=== PATIENT | female | born 1975 | race Caucasian/White ===

== ENCOUNTER → 2021-10-28 16:06 | Outpatient (CLI) | payer OTHER, SELFPAY ==
--- NOTE | 2021-10-28 | DI.MRI.S_ITS ---
PROCEDURE: MR LUMBAR SPINE WO CON INDICATIONS: Radiculopathy, cervical and lumbar region TECHNIQUE: Noncontrast sagittal T1 spin echo and T2 fast echo, sagittal STIR, axial T1 and T2 fast spin echo through the lumbar spine. In cases with scoliosis, additional coronal T2 fast spin echo may be performed. COMPARISON: None. FINDINGS: Image quality: Excellent. Alignment and Curvature: There is normal bony alignment. Bone Marrow: Marrow is of normal overall signal. No acute vertebral body compression fractures. Spinal Cord: Conus medullaris terminates at the L1 level. Visualized cord demonstrates normal signal and size. Regional Soft Tissues: No paravertebral masses. T12-L1: No spinal canal or neural foraminal stenosis. L1-L2: No spinal canal or neural foraminal stenosis. L2-L3: No spinal canal or foraminal stenosis. L3-L4: No spinal canal or neural foraminal stenosis. L4-L5: Disc desiccation and disc height loss. Small annular fissure noted. Diffuse disc bulge flattens the ventral thecal sac. Disc material displaces the descending L5 nerve roots within both subarticular zones. No neural foraminal stenosis. There is mild-moderate right greater than left facet arthrosis. L5-S1: Disc desiccation and disc height loss with diffuse disc bulge mildly displacing the descending S1 nerve roots in both subarticular zones. Small annular fissure noted. No neural foraminal stenosis. Mild facet arthrosis. IMPRESSION: Mild lower lumbar spine degenerative changes. No evidence of focal nerve root impingement. Facet arthrosis and annular fissures at both L4-L5 and L5-S1, potential sources of nonradicular axial back pain. Dictated by: Christiano Lam M.D. on 10/31/2021 at 10:15 Approved by: Christiano Lam M.D. on 10/31/2021 at 10:21
--- NOTE | 2021-10-28 | DI.MRI.S_ITS ---
PROCEDURE: MR CERVICAL SPINE WO CON INDICATIONS: Radiculopathy, cervical and lumbar region TECHNIQUE: Noncontrast sagittal T1 spin echo and T2 fast spin echo, sagittal STIR, foraminal oblique sagittal T2 fast spin echo, and axial gradient echo or T2 fast spin echo through the cervical spine. COMPARISON: None. FINDINGS: Image quality: Excellent. Alignment and Curvature: There is normal bony alignment. Bone Marrow: Marrow demonstrates normal overall signal. Spinal Cord: Visualized spinal cord has normal size and signal. No cerebellar tonsillar herniation. Regional Soft Tissues: No paravertebral masses. Prevertebral soft tissues are normal in thickness. C2-C3: No spinal canal or neural foraminal stenosis. C3-C4: No spinal canal or neural foraminal stenosis. C4-C5: Posterior disc osteophyte complex flattens the ventral thecal sac and mildly flatten the left paracentral cord. No neural foraminal stenosis. C5-C6: Posterior disc-osteophyte complex flattens the ventral cord. Facet and uncovertebral hypertrophy combine to produce mild bilateral neural foraminal stenosis. C6-C7: No spinal canal or neural foraminal stenosis. C7-T1: No spinal canal or neural foraminal stenosis. IMPRESSION: Mild degenerative changes at C4-C5 and C5-C6. Dictated by: Christiano Lam M.D. on 10/31/2021 at 10:00 Approved by: Christiano Lam M.D. on 10/31/2021 at 10:14
== END ==
PROVIDERS: Referring Provider Family Medicine; Visit Provider Family Medicine
DX: M47.22 Other spondylosis with radiculopathy, cervical region (principal); M47.26 Other spondylosis with radiculopathy, lumbar region; M54.9 Dorsalgia, unspecified; M47.27 Other spondylosis with radiculopathy, lumbosacral region
CPT/HCPCS: 72141; 72148

== ENCOUNTER → 2022-03-09 07:38 | Outpatient (CLI) | payer OTHER, SELFPAY ==
--- NOTE | 2022-03-09 07:41 | DI.ECHO.S_ITS ---
[facility] +---------+ : : [address] : : : : [id number] : : : : Phone: [phone]+ Echocardiogram Report + + :Name: YOLIE YANG Study Date: 03/09/2022 Height: 67 in : :[facility] ReadingLocation: Weight: 183 lb : : Gender: Female BSA: 1.9 m2 : :: 1975 Age: 46 yrs BP: 158/102 mmHg: :Reason For Study: PALPITATIONS : :Ordering Physician: TAMI, : :DIMITRI Mercado Performed By: Anjali Chu : :Referring: DIMITRI GARRETT : + + Interpretation Summary The left ventricle is normal in size and wall thickness. The ejection fraction is estimated to be 55-60%. The right ventricle is grossly normal size. The right ventricular systolic function is normal. There is mild mitral regurgitation. The IVC is of normal diameter and collapses greater than 50% with a sniff. This suggests a low right atrial pressure of 3 mm Hg. BP: 158/102 mmHg Procedure: A two-dimensional transthoracic echocardiogram with color flow and Doppler was performed. The study quality was technically adequate. There is no prior echocardiogram noted for this patient. The patient was in sinus rhythm with heart rates between 62-68 bpm during the exam. Left Ventricle: The left ventricle is normal in size and wall thickness. There is no thrombus. The ejection fraction is estimated to be 55-60%. Left ventricular systolic function is normal. There are no focal wall motion abnormalities. MV E/A: 1.1 Med Peak E' Robbi: 7.4 cm/sec E/E' med: 12.5. Right Ventricle: The right ventricle is not well visualized. The right ventricle is grossly normal size. The right ventricular systolic function is normal. Atria: The left atrial size is normal. Right atrial size is normal. There is no Doppler evidence for an interatrial shunt. Mitral Valve: The mitral valve leaflets appear mildly thickened, but open well. The mitral valve leaflets are slightly calcified. There is mild mitral regurgitation. Aortic Valve: The aortic valve is grossly normal. There is no aortic valve stenosis. No aortic regurgitation is present. Tricuspid Valve: The tricuspid valve is not well visualized, but is grossly normal. No tricuspid regurgitation. Pulmonary artery pressures cannot be estimated because of the lack of a measurable TR jet velocity. Pulmonic Valve: The pulmonic valve is not well visualized. There is no pulmonic valvular regurgitation. Great Vessels: The aortic root is normal size. The dimensions of the ascending aorta are normal. The IVC is of normal diameter and collapses greater than 50% with a sniff. This suggests a low right atrial pressure of 3 mm Hg. Pericardium/ Pleura There is no pericardial effusion. There is no pleural effusion. MMode/2D Measurements & Calculations LVIDd: 4.8 cm LVOT diam: 2.0 cm LVIDs: 3.1 cm Ao root diam: 2.8 cm FS: 35.2 % asc Aorta Diam: 3.1 cm IVSd: 0.95 cm Ao Arch Diam (Prox Trans): 2.7 cm LVPWd: 0.96 cm LV de la torre. diameter/BSA (cm/m^2): 2.5 LV sys. diameter/BSA (cm/m^2): 1.6 LA A2 area: 17.9 cm2 RA long axis: 4.5 cm LA A4 area: 15.3 cm2 RA area: 13.5 cm2 LA length (vol): 4.7 cm RA vol: 34.5 ml LA vol: 49.5 ml RA : 17.7 ml/m2 LA vol index: 25.4 ml/m2 IVC diam: 1.4 cm TAPSE: 2.2 cm Doppler Measurements & Calculations Ao V2 max: 108.4 cm/sec LVOT Max Robbi: 71.2 cm/sec Ao V2 mean: 73.7 cm/sec LV V1 max P.0 mmHg Ao max P.7 mmHg LV V1 VTI: 16.8 cm Ao mean P.5 mmHg JODEE(I,D): 2.2 cm2 Ao V2 VTI: 24.4 cm JODEE(V,D): 2.0 cm2 sev ratio: 0.69 JODEE indexed to BSA (cm^2/m^2): 1.1 MV E max robbi: 92.6 cm/sec PA V2 max: 88.4 cm/sec MV A max robbi: 81.0 cm/sec PA V2 mean: 58.4 cm/sec MV E/A: 1.1 PA mean P.6 mmHg Med Peak E' Robbi: 7.4 cm/sec E/E' med: 12.5 Lat Peak E' Robbi: 10.0 cm/sec E/E' lat: 9.2 E/e' average: 10.9 MV dec time: 0.22 sec SVLVOT): 52.5 ml Reading Physician:12:03 PM
== END ==
PROVIDERS: Referring Provider Family Medicine; Visit Provider Family Medicine
DX: I34.0 Nonrheumatic mitral (valve) insufficiency (principal); R00.2 Palpitations; R60.9 Edema, unspecified; R20.2 Paresthesia of skin; R53.83 Other fatigue
CPT/HCPCS: 93306

== ENCOUNTER 2022-08-24 00:48 | Emergency (ER) | payer OTHER, SELFPAY ==
[2022-08-24 01:03] VITALS: BP 177/99; PULSE 90; RESP 20; TEMP 36.6; O2SAT 97; BMI 63.8
--- NOTE | 2022-08-24 01:11 | DI.RAD.S_ITS ---
PROCEDURE: XR CHEST 1V INDICATIONS: Shortness of breath TECHNIQUE: One view of the chest was acquired. COMPARISON: None. FINDINGS: Surgical changes and devices: None. Lungs and pleura: Lungs are clear. No pleural effusions or pneumothorax. Mediastinum: Mediastinal contours appear normal. Heart size is normal. Bones and chest wall: No suspicious bony lesions. Overlying soft tissues appear unremarkable. IMPRESSION: 1. No acute cardiopulmonary disease. Dictated by: Vaughn Maharaj M.D. on 08/24/2022 at 2:07 Approved by: Vaughn Maharaj M.D. on 08/24/2022 at 2:07
[2022-08-24 04:56] VITALS: BP 171/77; PULSE 88; RESP 20; TEMP 36.8
--- NOTE | 2022-08-24 05:04 | ED.GENADULT ---
HPI - General Adult General Chief complaint: Upper Respiratory Symptoms Stated complaint: HARD TIME CATCHING HER BREATH Time Seen by Provider: 08/24/22 05:04 Source: patient Mode of arrival: Ambulatory History of Present Illness HPI narrative: Otherwise healthy 46-year-old woman presents with worsening cough. She notes significant viral infection over the Thanksgiving week with fevers, body aches, chills, significant cough and mild nausea. She was clearly improving from this but over the last 2-3 days has had worsening cough that feels like there is mucus in her upper airways. She has been using an inhaler that she had been given after an episode of COVID almost a year ago and found that it was somewhat helpful. She is not complaining of fevers, myalgias or a general feeling of malaise, simply the cough. She is reporting no nausea, vomiting, diarrhea. No headaches. Related Data Previous Rx's Medication Instructions Recorded prednisone 20 mg tablet 20 mg PO DAILY #8 tabs 08/24/22 Review of Systems Review of Systems Narrative: Remainder of complete review of systems is otherwise unremarkable except for that included in the HPI. Patient History Substance Use Type: does not use Exam Initial Vital Signs Initial Vital Signs: Vital Signs Temperature 97.9 F 08/24/22 01:03 Pulse Rate 90 08/24/22 01:03 Respiratory Rate 20 08/24/22 01:03 Blood Pressure 177/99 H 08/24/22 01:03 Pulse Oximetry 97 08/24/22 01:03 Oxygen Delivery Method 08/24/22 01:03 General: Healthy appearing, in mild distress secondary to cough. Able to give a complete and coherent history. Well-nourished well-developed HEENT: Moist mucous membranes, normal sclera with reactive pupils, Neck: supple Respiratory: Lungs are clear to auscultation, no wheezing no rales no rhonchi. Full and symmetrical air movement Cardiac: Regular rate and rhythm no murmurs no bruits Abdomen: Soft, nontender, good bowel tones, no flank pain Skin: Warm and dry, no rashes Neurologic: Grossly neurologically intact with no obvious asymmetries or abnormalities Extremities: No trauma, well perfused Psych: Cooperative, appropriate insight and affect Course Orders Ordered: ED Orders 08/24/22 01:11 XR chest 1V Stat COVID19 -Nasal RAPID/Pre-Proc Stat Complete Blood Count AUTO DIFF Stat Comprehensive Metabolic Panel Stat Lactate (Lactic Acid) Stat NT-proBNP (BNP-Adult 18+) Stat Prothrombin Time INR Stat Troponin I Stat EKG-12 Lead Stat Measure peak expiratory flow ONCE RT Consult Eval and Treat NOW 08/24/22 04:48 Covid-19 + FLU A/B + RSV - PCR Stat Vital Signs Vital signs: Vital Signs - 8 hr 08/24/22 01:03 08/24/22 04:56 Temperature 97.9 F 98.2 F Pulse Rate 90 88 Respiratory Rate 20 20 Blood Pressure 177/99 H 171/77 H Pulse Oximetry 97 Oxygen Delivery Method Room Air Medical Decision Making Imaging Data Chest x-ray: Radiologist's Impression: FINDINGS:? ? Surgical changes and devices:? None.? ? Lungs and pleura:? Lungs are clear.? No pleural effusions or pneumothorax.? ? Mediastinum:? Mediastinal contours appear normal.? Heart size is normal.? ? Bones and chest wall:? No suspicious bony lesions.? Overlying soft tissues appear unremarkable.? ? IMPRESSION:? ? 1.? No acute cardiopulmonary disease. ? ? ? Dictated by: Vaughn Maharaj M.D. on 08/24/2022 at 2:07 ? ? MDM Narrative Medical decision making narrative: 46-year-old woman with what sounds like a post viral reactive airway persistent cough. She is not having any additional signs of a post viral pneumonia or infection at this time chest x-ray is unremarkable. She responded nicely to albuterol nebulizer. Will place her on a steroid taper brief and have her increase the use of her albuterol MDI with spacer from once or twice a day to 2 puffs every 4-6 hours until the coughing is improving. We will also ask her to follow-up with her primary care physician. At this point I see no evidence of acute coronary syndrome, bacterial or viral etiology, congestive heart failure or pulmonary embolism. Findings reviewed with patient and she is safe for discharge home Discharge Plan Departure Patient Disposition: Home Clinical Impression: Post-viral cough syndrome Instructions: DI for Cough -- Adult Activity Restrictions/Additional Instructions: Thank you for coming in today Your x-ray is reassuring. There is no evidence of bacterial pneumonia, congestive heart failure, enlarged heart or collapsed lung. Based on your history and the fact that you are not having myalgias or fevers I suspect that this persistent cough is mild reactive airway disease after your recent viral infection. I am going to suggest a brief course of steroids. You are given 60 mg in the emergency department, I have given you a prescription for 40 mg for 2 days, 20 mg for 2 days and then 10 mg for 4 days. I would encourage you to use the albuterol meter dose inhaler that you have at home along with your spacer with 2 puffs every 4-6 hours depending on severity of your cough. Please schedule follow-up appointment with your primary care doctor within a week If you find that you are getting worse or develop any new symptoms, please feel free to return to the emergency department for further evaluation. Prescriptions: New prednisone 20 mg tablet 20 mg PO DAILY Qty: 8 0RF Rx Instructions: 40 mg x 2 days, 20 mg x 2 days, 10 mg x 4 days Referrals: Miscellaneous,Doctor, [Primary Care Provider] -
[2022-08-24] MEDS: predniSONE 20 MG TABLET 60 MG PO (05:22)
[2022-08-24] MEDS: ALBUTEROL 2.5 MG/3 ML NEB (ADULT) INH (05:23)
--- NOTE | 2022-08-24 05:28 | PC.NURSE ---
RT at bedside administering albuterol nebulizer
[2022-08-24 06:03] VITALS: BP 145/80; PULSE 83; RESP 16; O2SAT 98
[2022-08-24 06:13] LABS: COVID-19 CEPHEID 4-PLEX PCR Negative (Negative); Influenza A - CEPHEID Flu A NEGATIVE (NEGATIVE); Influenza B - CEPHEID Flu B NEGATIVE (NEGATIVE); Respiratory Syncytial Virus Negative (Negative)
== END 2022-08-24 06:08 | disposition home or self-care (01) ==
PROVIDERS: Emergency Provider Emergency Medicine
DX: G93.31 Postviral fatigue syndrome (principal)
CPT/HCPCS: 0241U; 71045; 94640; 99283; J7613

== ENCOUNTER → 2022-12-26 15:26 | Outpatient (CLI) | payer OTHER, SELFPAY ==
--- NOTE | 2022-12-26 15:27 | DI.RAD.S_ITS ---
PROCEDURE: XR SHOULDER LT MIN 2V INDICATIONS: LEFT SHOULDER PAIN TECHNIQUE: 3 views of the shoulder were acquired. COMPARISON: [facility], CR, XR CHEST 1V, 08/24/2022, 1:28. FINDINGS: Bones: No fractures or dislocations. No suspicious bony lesions. Visualized ribs appear intact. Soft tissues: No suspicious soft tissue calcifications. IMPRESSION: No definite radiographic abnormality. If pain persists with conservative management, consider cross sectional imaging such as CT or MRI for further assessment. Dictated by: Baldo TOLBERT Interpreted: Hasmukh Garcia MD on 12/26/2022 at 15:53 Transcribed by: JEM on 12/26/2022 at 15:55 Approved by: Hasmukh Garcia M.D. on 12/26/2022 at 16:36
== END ==
PROVIDERS: PCP Registered Nurse Diabetes Educator; Referring Provider Registered Nurse Diabetes Educator; Visit Provider Registered Nurse Diabetes Educator
DX: M25.512 Pain in left shoulder (principal); M79.2 Neuralgia and neuritis, unspecified
CPT/HCPCS: 73030

== ENCOUNTER → 2023-01-19 08:44 | Outpatient (CLI) | payer OTHER, SELFPAY ==
--- NOTE | 2023-01-19 | DI.MRI.S_ITS ---
PROCEDURE: MR SHOULDER LT W CON INDICATIONS: left shoulder pain TECHNIQUE: After the administration of 12 mL of dilute intra-articular Gadolinium contrast, oblique coronal T1 and T2 spin echo with fat saturation, oblique sagittal T1 spin echo with and without fat saturation, oblique sagittal T2 fast spin echo with fat saturation, axial T1 spin echo with fat saturation through the shoulder. COMPARISON: [facility], CR, XR SHOULDER LT MIN 2V, 12/26/2022, 15:23. FINDINGS: Image quality: Excellent. Rotator cuff: There is mild supraspinatus and infraspinatus tendinosis. No discrete tendon tear. No rotator cuff muscle atrophy on sagittal images. Bones and bursae: No bone marrow contusions or fractures. No acromioclavicular joint degeneration. The acromion demonstrates conventional anatomy, without an os acromiale. Capsule and soft tissues: The labrum and glenohumeral ligaments appear intact. The long head of the biceps tendon demonstrates normal location and morphology. The rotator interval appears normal, without fibrosis. The coracohumeral ligament is of normal thickness. No intra-articular bodies. IMPRESSION: 1. Mild supraspinatus and infraspinatus tendinosis. Dictated by: Keegan Klein M.D. on 01/19/2023 at 16:37 Approved by: Keegan Klein M.D. on 01/19/2023 at 18:44
--- NOTE | 2023-01-19 | DI.RAD.S_ITS ---
PROCEDURE: FL SHOULDER INJECTION MR/CT LT INDICATIONS: left shoulder pain COMPARISON: [facility], CR, XR SHOULDER LT MIN 2V, 12/26/2022, 15:23. TECHNIQUE: The indications, alternatives, benefits, risks, and complications of the procedure were explained to the patient. Written informed consent was obtained and placed in the chart. The shoulder was examined fluoroscopically and a site for needle placement chosen for entry into the glenohumeral joint from an anterior approach. The skin was prepped and draped in a sterile fashion, and 1% lidocaine infiltrated from skin down to joint capsule. A spinal needle was inserted into the glenohumeral joint, and a small amount of iodinated contrast media injected to confirm intra-articular placement of the needle tip. This was followed by approximately 12 mL dilute solution of a gadolinium containing MR contrast agent. The needle was removed and a dressing was applied. The patient was given postprocedural instructions and sent to the MR suite for MR imaging. FINDINGS: A single fluoroscopic spot image demonstrates intra-articular location of injected iodinated contrast. IMPRESSION: Successful fluoroscopically guided administration of dilute Gadolinium solution into the shoulder joint for MR arthrogram. Dictated by: Keegan Klein M.D. on 01/19/2023 at 15:43 Approved by: Keegan Klein M.D. on 01/19/2023 at 15:44
== END ==
PROVIDERS: PCP Registered Nurse Diabetes Educator; Referring Provider Registered Nurse Diabetes Educator; Visit Provider Registered Nurse Diabetes Educator
DX: M25.512 Pain in left shoulder (principal)
CPT/HCPCS: 23350; 73222

== ENCOUNTER → 2023-03-30 09:56 | Outpatient (CLI) | payer OTHER, SELFPAY ==
--- NOTE | 2023-03-30 | DI.MG.S_ITS ---
BILATERAL DIGITAL SCREENING MAMMOGRAM 3D/2D WITH CAD: 03/30/2023 CLINICAL: Routine screening. Comparison is made to exams dated: 03/27/2016 mammogram and 04/25/2019 mammogram - outside facility. Both breasts are heterogeneously dense, which may obscure small masses (category c / 51-75% glandular tissue). Current study was also evaluated with a Computer Aided Detection (CAD) system. No significant masses, calcifications, or other findings are seen in either breast. There has been no significant interval change. IMPRESSION: NEGATIVE There is no mammographic evidence of malignancy. A 1 year screening mammogram is recommended. Based on the Tyrer Cuzick model (a risk assessment model) the patient's lifetime risk is 10.6% and her 10 year risk is 2.4%. According to the ACR, ACS, and NCCN guidelines, an annual breast MRI exam along with mammogram is recommended if the patient's lifetime risk is 20% or greater. This exam was interpreted at Station ID: [id number]. NOTE: For mammograms, a report in lay terms will be sent to the patient. Approximately 15% of breast malignancies will not be visualized mammographically. In the management of a palpable breast mass, a negative mammogram must not discourage biopsy of a clinically suspicious lesion. Electronically Signed By: Shaq rhodes/nayla:03/30/2023 11:02:03 letter sent: Normal Exam ACR BI-RADS Category 1: Negative 3341F
== END ==
PROVIDERS: PCP Registered Nurse Diabetes Educator; Referring Provider Registered Nurse Diabetes Educator; Visit Provider Registered Nurse Diabetes Educator
DX: Z12.31 Encounter for screening mammogram for malignant neoplasm of breast (principal)
CPT/HCPCS: 77063; 77067

== ENCOUNTER → 2023-04-16 07:51 | Outpatient (CLI) | payer OTHER, SELFPAY ==
[2023-04-16 08:22] LABS: Hematocrit 40.8 % (36-46); Hemoglobin 13.7 g/dL (12.0-16.0); Mean Corpuscular HGB Conc 33.5 % (30-36); Mean Corpuscular Hemoglobin 29.1 PG (26-34); Mean Corpuscular Volume 86.8 fL (80-100); Platelet Count 209 X10^3/uL (150-400); Red Cell Distribution Width 13.6 % (11.6-14.8); White Blood Cell Count 6.2 X10^3/uL (4.5-11.0)
[2023-04-16 08:37] LABS: Alanine Aminotransferase 19 IU/L (<35); Albumin 4.3 g/dL (3.5-5.0); Albumin Globulin Ratio 1.4 (1.0-2.8); Alkaline Phosphatase 88 U/L (38-126); Aspartate Aminotransferase 20 IU/L (14-36); BUN Creatinine Ratio 26.7 (6-22); Bilirubin Total 0.6 mg/dL (0.2-1.3); Blood Urea Nitrogen 16 mg/dL (7-17); Calcium 9.1 mg/dL (8.4-10.2); Carbon Dioxide 31 mmol/L (22-32); Chloride 103 mmol/L (98-107); Cholesterol 230 mg/dL (140-199); Estimated Glomerular Filt Rate > 60 mL/min (>60); Globulin 3.1 g/dL (1.7-4.1); Glucose 101 mg/dL (70-100); HDL Cholesterol 70 mg/dL (40-60); HEMOLYSIS < 15 (0-50); LDL Cholesterol Calculated 126 mg/dL (<100); Potassium 3.7 mmol/L (3.4-5.1); Sodium 140 mmol/L (137-145); Total Protein 7.4 g/dL (6.3-8.2); Triglycerides 171 mg/dL (35-150)
[2023-04-16 08:54] LABS: Vitamin D 25 Hydroxy (D3) 36.1 ng/mL (30.0-100.0)
[2023-04-16 09:07] LABS: TSH w/ Reflex to FT4 2.98 uIU/mL (0.47-4.68)
== END ==
PROVIDERS: PCP Registered Nurse Diabetes Educator; Referring Provider Registered Nurse Diabetes Educator; Visit Provider Registered Nurse Diabetes Educator
DX: E55.9 Vitamin D deficiency, unspecified (principal); Z00.00 Encounter for general adult medical examination without abnormal findings
CPT/HCPCS: 36415; 80053; 80061; 82306; 84443; 85027

== ENCOUNTER 2023-05-25 08:30 | Day surgery (SDC) | payer OTHER, SELFPAY ==
--- NOTE | 2023-05-25 | PATH_ITS ---
[facility] Accession Number: [id number] No. of containers..01 Tissue . 01 Material submitted: . colon - ASCENDING POLYP . 01 Diagnosis: Ascending Colon Polyp, Biopsy: Tubular adenoma. MRV 05/31/2023 1723 Local . 01 Electronically signed: . Luz Cristina MD, Pathologist NPI- [id number] . 01 Gross description: . ASCENDING POLYP: Received in formalin is 1 fragment(s) of stringer, soft tissue measuring 0.2 x 0.2 x 0.2 cm submitted entirely in 1 cassette(s) /KRISTOFER 05/28/2023 2316 Local . 01 Pathologist provided ICD-10: D12.2 . 01 CPT . 166564 Specimen Comment: A courtesy copy of this report has been sent to [facility] Pathology Performed at: 01 [facility] [address] [place] [address] [id number] MD Vaughn Brambila MD Phone: [phone]
[2023-05-25 08:50] VITALS: BMI 30.5
[2023-05-25 08:58] VITALS: BP 172/95; PULSE 85; RESP 16; TEMP 36.4; O2SAT 100
[2023-05-25] MEDS: LACTATED RINGERS 1,000 ML 42 ML IV (09:05)
--- NOTE | 2023-05-25 10:22 | P.HP_ITS ---
History of Present Illness History of Present Illness Date Patient Seen: 05/25/23 Time Patient Seen: 10:22 Chief complaint: Colonoscopy Narrative: 47-year-old female presents today for her 1st screening colonoscopy. She is no family history of colon cancer and no symptoms that she finds concerning no bleeding or changes in bowel habits. She asked a few questions about polyps pathology and follow-up questions or recommendations and I answered these questions she would like to proceed. [facility], [facility] Medical History (Updated 05/25/23 @ 10:23 by Gricelda Martinez MD) Allergies Anxiety Asthma Chronic back pain Chronic left shoulder pain Dyslipidemia Eczema Essential hypertension Impaired fasting blood sugar Shoulder pain Surgical History Anesthesia History of bronchoscopy Family History Mother Diabetes mellitus History of heart disease Hyperlipidemia Hypertension Mental health problem Stroke Gastrointestinal disease Grandfather Cancer Grandmother Cancer Social History household members: spouse Smoking Status: Never smoker alcohol intake: never Meds Home Medications and Allergies Home Medications Medication Instructions Recorded Confirmed Type hydrochlorothiazide 25 mg tablet 25 mg PO DAILY #30 tabs 04/23/23 05/25/23 Rx epinephrine 0.3 mg/0.3 mL 0.3 ml IM PRN Anaphylaxis 05/25/23 05/25/23 History injection, auto-injector Allergies Allergy/AdvReac Type Severity Reaction Status Date / Time NSAIDS (Non-Steroidal Allergy Severe Anaphylaxis Verified 05/25/23 08:43 Anti-Inflamma bee venom protein (honey bee) AdvReac Hives Verified 05/25/23 08:43 shellfish Allergy Anaphylaxis Uncoded 05/25/23 08:43 Exam Vital Signs (past 8 hours): - 05/25/23 08:58 Temperature 97.6 F Pulse Rate 85 Respiratory Rate 16 Blood Pressure 172/95 H Pulse Oximetry 100 Oxygen Delivery Method Room Air Oxygen Delivery Method Room Air Const General: cooperative, healthy appearing and comfortable Nutritional Appearance: other (BMI 30) HENNC Head: normal to inspection Eyes General: appearance normal, both eyes and all related structures Neck Neck: normal visual inspection Resp Effort & Inspection: normal respiratory effort and able to speak in complete sentences GI Palpation: soft and No tender Assessment & Plan Assessment and plan (1) Colon cancer screening: Status: Acute Assessment & Plan narrative: Presents today for screening colonoscopy I discussed the risks benefits and alternatives including but not limited to perforation of the colon and an incomplete exam she fully understands these risks and would like to proceed.
[2023-05-25 11:09] VITALS: BP 114/64; PULSE 68; RESP 12; TEMP 36.3; O2SAT 99
[2023-05-25 11:14] VITALS: BP 108/64; PULSE 68; RESP 12; O2SAT 99
[2023-05-25 11:19] VITALS: BP 119/68; PULSE 63; RESP 11; O2SAT 97
[2023-05-25 11:24] VITALS: BP 118/69; PULSE 66; RESP 12; O2SAT 98
--- NOTE | 2023-05-25 11:27 | PM.OP.COLON ---
Operative Date/Time/Diagnoses Date of procedure: 05/25/23 Time of procedure: 11:27 Pre-op diagnosis: Screening for colon cancer. no family history Post-op diagnosis: same Procedure & Clinicians Study performed: Colonoscopy biopsy Same procedure as scheduled: Yes Indications: Screening for colon cancer Surgeon: Gricelda Martinez Procedure Notes Procedure in detail: Patient was taken to the endoscopy suite and placed in a left lateral decubitus position. A time-out was performed. With the help of anesthesiologist conscious sedation was induced and monitored throughout the case. A digital rectal exam was performed and there were no masses or strictures. The colonoscope was introduced into the anal canal and advanced through to the cecum. A photograph of the appendiceal orifice was obtained. The bowel prep was good [place] bowel prep score of 2, though there were some areas in the right colon that were very sticky and required irrigation for a thorough exam. The scope was then withdrawn for a total of 12 minutes and 1 small polyp in the ascending colon was seen photographed and removed with a biopsy forceps. The scope was then retroflexed and a photograph of the internal hemorrhoidal piles was obtained. Findings: polyp(s) Specimen(s): other (Small ascending colon polyp) Post-procedure Plan for aftercare: No family history of colon cancer follow-up will be 7-10 years depending on the pathology of this small polyp. Anyone with polyps I do recommend fiber supplementation.
[2023-05-25 11:31] VITALS: BP 98/65; PULSE 64; RESP 14; O2SAT 100
== END 2023-05-25 11:46 | disposition home or self-care (01) ==
PROVIDERS: PCP Registered Nurse Diabetes Educator; Referring Provider Surgery; Visit Provider Surgery
PROC: 0DJD8ZZ Inspection of Lower Intestinal Tract, Via Natural or Artificial Opening Endoscopic (ICD-10-PCS; CPT 45378; principal; 2023-05-25 09:15)
DX: Z12.11 Encounter for screening for malignant neoplasm of colon (principal); D12.2 Benign neoplasm of ascending colon
CPT/HCPCS: 45380

== ENCOUNTER → 2023-07-30 15:54 | Outpatient (CLI) | payer OTHER, SELFPAY ==
[2023-07-30 17:58] LABS: BUN Creatinine Ratio 32.4 (6-22); Blood Urea Nitrogen 22 mg/dL (7-17); Calcium 9.8 mg/dL (8.4-10.2); Carbon Dioxide 28 mmol/L (22-32); Chloride 102 mmol/L (98-107); Estimated Glomerular Filt Rate > 60 mL/min (>60); Glucose 109 mg/dL (70-100); HEMOLYSIS < 15 (0-50); Potassium 3.6 mmol/L (3.4-5.1); Sodium 140 mmol/L (137-145)
== END ==
PROVIDERS: PCP Registered Nurse Diabetes Educator; Referring Provider Registered Nurse Diabetes Educator; Visit Provider Registered Nurse Diabetes Educator
DX: I10 Essential (primary) hypertension (principal)
CPT/HCPCS: 36415; 80048

== ENCOUNTER → 2024-04-21 17:19 | Outpatient (CLI) | payer OTHER, SELFPAY ==
--- NOTE | 2024-04-21 17:20 | DI.MG.S_ITS ---
BILATERAL DIGITAL SCREENING MAMMOGRAM 3D/2D WITH CAD: 04/21/2024 CLINICAL: Routine screening. Comparison is made to exams dated: 03/30/2023 mammogram - [facility], 04/25/2019 mammogram, and 03/27/2016 mammogram - outside facility. Both breasts are heterogeneously dense, which may obscure small masses (category c / 51-75% glandular tissue). Current study was also evaluated with a Computer Aided Detection (CAD) system. No significant masses, calcifications, or other findings are seen in either breast. There has been no significant interval change. IMPRESSION: NEGATIVE There is no mammographic evidence of malignancy. A 1 year screening mammogram is recommended. Based on the Tyrer Cuzick model (a risk assessment model) the patient's lifetime risk is 10.6% and her 10 year risk is 2.5%. According to the ACR, ACS, and NCCN guidelines, an annual breast MRI exam along with mammogram is recommended if the patient's lifetime risk is 20% or greater. This exam was interpreted at Station ID: [id number]. NOTE: For mammograms, a report in lay terms will be sent to the patient. Approximately 15% of breast malignancies will not be visualized mammographically. In the management of a palpable breast mass, a negative mammogram must not discourage biopsy of a clinically suspicious lesion. Electronically Signed By: Renetta Raya M.D., Ph.D. rae/nayla:04/22/2024 12:03:51 letter sent: Normal Exam ACR BI-RADS Category 1: Negative [id number]
== END ==
LOC: MAMMO 17:19
PROVIDERS: PCP Registered Nurse Diabetes Educator; Referring Provider Registered Nurse Diabetes Educator; Visit Provider Registered Nurse Diabetes Educator
DX: Z12.31 Encounter for screening mammogram for malignant neoplasm of breast (principal); R92.333 Mammographic heterogeneous density, bilateral breasts
CPT/HCPCS: 77063; 77067

== ENCOUNTER → 2024-11-04 07:52 | Outpatient (CLI) | payer OTHER, SELFPAY ==
[2024-11-04 08:20] LABS: Hematocrit 41.5 % (36-46); Hemoglobin 13.9 g/dL (12.0-16.0); Mean Corpuscular HGB Conc 33.5 % (30-36); Mean Corpuscular Hemoglobin 28.8 PG (26-34); Platelet Count 219 X10^3/uL (150-400); Red Blood Cell Count 4.83 X10^6/uL (4.0-5.2); Red Cell Distribution Width 14.1 % (11.6-14.8); White Blood Cell Count 6.9 X10^3/uL (4.5-11.0)
[2024-11-04 08:34] LABS: Hemoglobin A1C% w Est Avg Glu 5.4 % (4.0-6.0)
[2024-11-04 08:45] LABS: Alanine Aminotransferase 30 IU/L (<35); Albumin 4.3 g/dL (3.5-5.0); Albumin Globulin Ratio 1.4 (1.0-2.8); Alkaline Phosphatase 95 U/L (38-126); Aspartate Aminotransferase 29 IU/L (14-36); BUN Creatinine Ratio 22.7 (6-22); Bilirubin Total 0.5 mg/dL (0.2-1.3); Blood Urea Nitrogen 15 mg/dL (7-17); Calcium 8.9 mg/dL (8.4-10.2); Carbon Dioxide 27 mmol/L (22-32); Chloride 104 mmol/L (98-107); Cholesterol 243 mg/dL (140-199); Estimated Glomerular Filt Rate > 60 mL/min (>60); Glucose 99 mg/dL (70-100); HDL Cholesterol 63 mg/dL (40-60); HEMOLYSIS < 15 (0-50); LDL Cholesterol Calculated 146 mg/dL (<100); Potassium 3.6 mmol/L (3.4-5.1); Sodium 139 mmol/L (137-145); Total Protein 7.3 g/dL (6.3-8.2); Triglycerides 171 mg/dL (35-150)
[2024-11-04 09:00] LABS: Vitamin D 25 Hydroxy (D3) 19.6 ng/mL (30.0-100.0)
[2024-11-04 09:51] LABS: TSH w/ Reflex to FT4 3.55 uIU/mL (0.47-4.68)
== END ==
PROVIDERS: PCP Registered Nurse Diabetes Educator; Referring Provider Registered Nurse Diabetes Educator; Visit Provider Registered Nurse Diabetes Educator
DX: I10 Essential (primary) hypertension (principal); R73.01 Impaired fasting glucose; E78.5 Hyperlipidemia, unspecified; R79.89 Other specified abnormal findings of blood chemistry
CPT/HCPCS: 36415; 80053; 80061; 82306; 83036; 84443; 85027

== ENCOUNTER → 2024-11-10 12:01 | Outpatient (CLI) | payer OTHER, SELFPAY ==
--- NOTE | 2024-11-10 12:01 | DI.US.S_ITS ---
PROCEDURE: US ART THORACIC OUT SYNDROME INDICATIONS: eval R arm pain/paresthesias, R/O arterial and venous TOS TECHNIQUE: Color and pulse Doppler interrogation was performed of left and right upper extremity arterial systems, with image documentation. COMPARISON: None. FINDINGS: Right upper extremity: Subclavian artery (proximal): 135.7 cm/sec, with patent flow. Subclavian artery (mid): 108.3 cm/sec, with patent flow. Subclavian artery (distal): 128.3 cm/sec, with patent flow. Brachial artery: 111.8 cm/sec, with patent flow. The right subclavian vein and axillary vein appear patent without evidence of DVT. Left upper extremity: Subclavian artery (proximal): 167.1 cm/sec, with patent flow. However, the velocity decreases to 90.4 centimeters/second during postop activity, indicative of arterial compression.. Subclavian artery (mid): 113.2 cm/sec, with patent flow. Subclavian artery (distal): 146.5 cm/sec, with patent flow. Axillary artery: 111.1 cm/sec, with patent flow. Brachial artery (proximal): 133.3 cm/sec, with patent flow. This is diminished 284.8 centimeters/second with pushed down. The left axillary vein and subclavian vein are patent without DVT. However, there is loss of cardiac and respiratory variation of the left axillary and left subclavian vein indicative of compression without obstruction. IMPRESSION: * Findings indicative of left axillary vein and subclavian vein compression without obstruction. * Additional findings suggesting left subclavian artery compression. * Recommend dedicated left axillary and subclavian CT angiogram and venogram for better characterization. Dictated by: Vaughn Patel M.D. on 11/11/2024 at 21:30 Approved by: Vaughn Patel M.D. on 11/11/2024 at 22:02
== END ==
LOC: US 12:01
PROVIDERS: PCP Registered Nurse Diabetes Educator; Referring Provider Registered Nurse Diabetes Educator; Visit Provider Registered Nurse Diabetes Educator
DX: G54.0 Brachial plexus disorders (principal); M79.602 Pain in left arm; R20.2 Paresthesia of skin
CPT/HCPCS: 93930

== ENCOUNTER → 2024-11-26 11:20 | Outpatient (CLI) | payer OTHER, SELFPAY ==
--- NOTE | 2024-11-26 11:22 | DI.CT.S_ITS ---
PROCEDURE: CT ANGIO UE LT INDICATIONS: L axillary,subclavian vein + subclavian artery TECHNIQUE: After the administration of intravenous contrast, 2.5 mm sections acquired from the aortic arch through the symptomatic arm, with optional delayed image acquisition from the elbows to the fingers. 3-dimensional maximum intensity projection (MIP) coronal and sagital reformats, and/or 3-dimensional volume rendering reformatting was then performed. For radiation dose reduction, the following was used: automated exposure control. COMPARISON: None. FINDINGS: Image quality: Excellent. Thoracic aorta: Patent without stenosis. Great vessels: There is narrowing of the left subclavian artery with the arm in the upright position, approximately 50% narrowing (series 9, image 199). The subclavian artery is widely patent with the arm in the upright position. Upper extremity: Unremarkable. Extravascular tissues: Patulous esophagus, which may indicate reflux. Small hiatal hernia. Marked coronary artery calcifications for age, within the LAD. Hepatic steatosis. IMPRESSION: Venous compression of the subclavian vein with the arm in the upright position. Findings may indicate mild thoracic outlet syndrome. No compression of the subclavian artery with the arm in the upright position. Marked coronary artery calcifications for age. Correlate with risk factors and advise counseling. Dictated by: Hasmukh Garcia M.D. on 11/26/2024 at 14:17 Approved by: Hasmukh Garcia M.D. on 11/26/2024 at 14:21
== END ==
LOC: CT 11:21
PROVIDERS: PCP Registered Nurse Diabetes Educator; Referring Provider Registered Nurse Diabetes Educator; Visit Provider Registered Nurse Diabetes Educator
DX: G54.0 Brachial plexus disorders (principal); I87.1 Compression of vein; I25.10 Atherosclerotic heart disease of native coronary artery without angina pectoris
CPT/HCPCS: 73206; Q9967

== ENCOUNTER → 2025-01-12 09:53 | Outpatient (CLI) | payer OTHER, SELFPAY ==
--- NOTE | 2025-01-12 09:55 | DI.RAD.S_ITS ---
PROCEDURE: XR CERVICAL SPINE 5V INDICATIONS: NECK PAIN TECHNIQUE: 5 views of the cervical spine acquired. COMPARISON: None. FINDINGS: [id number] degenerative changes with disc space narrowing, osteophytes, uncovertebral and facet hypertrophic changes most notably at C4-5, C5-6, C6-7 with mild bilateral neural foraminal narrowing at these levels. No radiographic evidence of fracture, subluxation or abnormal prevertebral soft tissue edema. IMPRESSION: Degenerative changes C4-5, C5-6 and C6-7. If symptoms persist or worsen, or there is high clinical suspicion of cervical abnormality, MRI could be performed. Dictated by: Aris Figueredo M.D. on 01/12/2025 at 10:51 Approved by: Aris Figueredo M.D. on 01/12/2025 at 10:54
== END ==
PROVIDERS: PCP Registered Nurse Diabetes Educator; Referring Provider Physical Medicine & Rehabilitation; Visit Provider Physical Medicine & Rehabilitation
DX: M47.812 Spondylosis without myelopathy or radiculopathy, cervical region (principal); M54.2 Cervicalgia
CPT/HCPCS: 72050

== ENCOUNTER → 2025-03-18 15:40 | Outpatient (CLI) | payer OTHER, SELFPAY ==
--- NOTE | 2025-03-18 15:42 | DI.RAD.S_ITS ---
PROCEDURE: XR CHEST 2V INDICATIONS: Cough TECHNIQUE: 2 views of the chest were acquired. COMPARISON: [facility], CR, XR CHEST 1V, 08/24/2022, 1:28. FINDINGS: Surgical changes and devices: None. Lungs and pleura: Hazy opacity at the left costophrenic angle. No pleural effusions or pneumothorax. Mediastinum: Mediastinal contours are normal. Heart size is normal. Bones and chest wall: No suspicious bony abnormalities. Soft tissues appear unremarkable. IMPRESSION: Hazy opacity at the left costophrenic angle. Appears more prominent compared to the prior exam. This could represent atelectasis. Pneumonia, pleural fluid, or prominent pericardial fat pad could have a similar appearance. Dictated by: Tarun Garcia M.D. on 03/19/2025 at 9:12 Approved by: Tarun Garcia M.D. on 03/19/2025 at 9:22
== END ==
PROVIDERS: PCP Registered Nurse Diabetes Educator; Referring Provider Nurse Practitioner Family; Visit Provider Nurse Practitioner Family
DX: R05.9 Cough, unspecified (principal)
CPT/HCPCS: 71046

== ENCOUNTER → 2025-03-18 15:54 | Outpatient (CLI) | payer OTHER, SELFPAY ==
[2025-03-18 17:03] LABS: COVID-19 CEPHEID 4-PLEX PCR Negative (Negative); Influenza A - CEPHEID Flu A NEGATIVE (NEGATIVE); Influenza B - CEPHEID Flu B NEGATIVE (NEGATIVE)
== END ==
PROVIDERS: PCP Registered Nurse Diabetes Educator; Visit Provider Nurse Practitioner Family
DX: R05.1 Acute cough (principal)
CPT/HCPCS: 71046; 87637

== ENCOUNTER 2025-03-23 04:58 | Emergency (ER) | payer OTHER, SELFPAY ==
[2025-03-23] VITALS (7 sets, daily range): BP systolic 153–190; BP diastolic 68–98; PULSE 64–75; RESP 11–26; TEMP 36.7; O2SAT 94–98; BMI 33.6
--- NOTE | 2025-03-23 05:06 | ED_ITS ---
HPI - General Adult General Chief complaint: Shortness of Breath/Dyspnea Stated complaint: pneumonia, can't catch her breath Time Seen by Provider: 03/23/25 05:02 History of Present Illness HPI narrative: 49-year-old female with ongoing cough now for 2 weeks, treated with initial course of oral azithromycin, not improved, had chest x-ray on 03/18/2025, felt to be possible left lower lobe pneumonia, now day 3-4 oral Augmentin with doxycycline antibiotic round, continues to have frequent coughing. Right anterior chest pain worse with coughing. Related Data Home Medications ?Medication ?Instructions ?Recorded ?Confirmed acetaminophen 500 mg tablet 500 mg PO Q6H PRN 01/12/25 03/18/25 (Tylenol Extra Strength) Previous Rx's ?Medication ?Instructions ?Recorded epinephrine 0.3 mg/0.3 mL 0.3 ml IM Q5-10M PRN Anaphyl axis 09/12/24 injection, auto-injector #2 ea progesterone micronized 100 mg 100 mg PO QAM #90 caps 11/18/24 capsule gabapentin 300 mg capsule 300 mg PO .COMPLEX #90 caps 01/12/25 estradiol 0.05 mg/24 hr semiweekly 1 patch transdermal 2XW #24 ea 03/10/25 transdermal patch azithromycin 250 mg tablet See Rx Instructions PO .COM PLEX #6 03/12/25 tabs benzonatate 200 mg capsule 200 mg PO BID-TID PRN cough #30 03/12/25 caps prednisone 20 mg tablet 40 mg (2 x 20 mg) PO DAILY # 6 tabs 03/18/25 amoxicillin 875 mg-potassium 1 tab PO Q12H PNA 7 days #14 tabs 03/19/25 clavulanate 125 mg tablet doxycycline hyclate 100 mg capsule 100 mg PO BID CAP 1 0 days #20 caps 03/19/25 prednisone 20 mg tablet 40 mg (2 x 20 mg) PO DAILY 5 days 03/23/25 #10 tabs Allergies Allergy/AdvReac Type Severity Reaction Status Date / Time NSAIDS (Non-Steroidal Allergy Severe Anaphylaxis Verified 03/23/25 05:04 Anti-Inflamma shellfish derived Allergy Severe Anaphylaxis Verified 03/23/25 05:04 bee venom protein (honey bee) AdvReac Hives Verified 03/23/25 05:04 Patient History Medical History Allergies Anxiety Asthma Cervical radicular pain Chronic back pain Chronic left shoulder pain Dyslipidemia Eczema Essential hypertension Herniated nucleus pulposus, L4-5 HNP (herniated nucleus pulposus), cervical Impaired fasting blood sugar Shoulder pain Surgical History Anesthesia History of bronchoscopy Family History Mother Diabetes mellitus History of heart disease Hyperlipidemia Hypertension Mental health problem Stroke Gastrointestinal disease Grandfather Cancer Grandmother Cancer Social History household members: spouse alcohol intake: never substance use type: does not use Exam Narrative Exam Narrative: GENERAL: Well-developed patient, in mild distress. HEAD: Atraumatic. Normocephalic. EYES: Pupils equal round and reactive. Extraocular motions intact. No scleral icterus. No injection or drainage. ENT: Nose without bleeding, purulent drainage. Throat without erythema, tonsillar hypertrophy or exudate. Airway patent. NECK: Trachea midline. Non tender CARDIOVASCULAR: Regular rate and rhythm without murmurs, gallops, or rubs. RESPIRATORY: Clear to auscultation. Breath sounds equal bilaterally. No wheezes, rales, or rhonchi. GASTROINTESTINAL: Abdomen soft, non-tender, nondistended. EXTREMITIES: No edema or joint tenderness. BACK: Nontender without deformity or crepitance. No flank tenderness. NEURO: AOx3. Motor functions grossly nonfocal. SKIN: No rash or erythema of visible areas Initial Vital Signs Initial Vital Signs: Vital Signs Temperature 98.1 F 03/23/25 05:04 Pulse Rate 74 03/23/25 05:04 Respiratory Rate 26 H 03/23/25 05:04 Blood Pressure 190/98 H 03/23/25 05:04 Pulse Oximetry 97 03/23/25 05:04 Oxygen Delivery Method Room Air 03/23/25 05:04 Course Orders Ordered: ED Orders 03/23/25 05:05 Complete Blood Count AUTO DIFF Stat Comprehensive Metabolic Panel Stat Lipase Stat Troponin & CK Cardiac Panel Stat 03/23/25 05:15 XR chest 1V Stat EKG-12 Lead Stat 03/23/25 05:28 Covid-19 + FLU A/B + RSV - PCR Stat Discontinued Medications Albuterol (Albuterol 2.5 Mg/3 Ml Neb (Adult)) 2.5 mg INH NOW ONE Stop: 03/23/25 05:06 Last Admin: 03/23/25 05:19 Dose: 2.5 mg Albuterol (Albuterol Hfa Prepack) 1 box MISC DIRECTED ONE Stop: 03/23/25 06:21 Last Admin: 03/23/25 06:25 Dose: 1 box Benzonatate (Benzonatate 100 Mg Capsule) 100 mg PO NOW ONE Stop: 03/23/25 05:27 Last Admin: 03/23/25 05:42 Dose: 100 mg Methylprednisolone (Methylprednisolone 125 Mg/2 Ml Vial) 125 mg IV NOW ONE Stop: 03/23/25 06:21 Last Admin: 03/23/25 06:25 Dose: 125 mg Vital Signs Vital signs: Vital Signs - 8 hr 03/23/25 05:04 03/23/25 05:15 03/23/25 05:20 Temperature 98.1 F Pulse Rate 74 66 75 Respiratory Rate 26 H 15 18 Blood Pressure 190/98 H Pulse Oximetry 97 97 98 Oxygen Delivery Method Room Air Room Air 03/23/25 05:30 03/23/25 05:31 03/23/25 05:31 Temperature Pulse Rate 66 69 Respiratory Rate 14 17 Blood Pressure 153/68 H Pulse Oximetry 97 96 Oxygen Delivery Method Room Air Medical Decision Making Lab Data Lab results reviewed: Yes I reviewed the patient's lab results. Lab results narrative: White blood cell count 9700, hemoglobin 14, platelets adequate. BMP unremarkable. Liver functions normal. Lipase normal. Troponin negative/unmeasurable. COVID flu RSV negative. 03/23/25 05:05 03/23/25 05:05 Labs: Lab Results 03/23/25 03/23/25 Range/Units 05:05 05:28 WBC 9.7 (4.5-11.0) X10^3/uL RBC 4.95 (4.0-5.2) X10^6/uL Hgb 14.4 (12.0-16.0) g/dL Hct 43.1 (36-46) % MCV 87.2 (80-100) fL MCH 29.2 (26-34) PG MCHC 33.5 (30-36) % RDW 13.9 (11.6-14.8) % Plt Count 241 (150-400) X10^3/uL Neut % (Auto) 61.1 (50-75) % Lymph % (Auto) 29.3 (25-40) % [place] % (Auto) 7.2 (3-14) % Eos % (Auto) 1.6 L (2-4) % Baso % (Auto) 0.8 (0-2) % Neut # (Auto) 5900 (9028-1446) /uL Lymph # (Auto) 2800 (6861-3348) /uL [place] # (Auto) 700 (0-900) /uL Eos # (Auto) 200 (0-450) /uL Baso # (Auto) 100 (0-100) /uL Sodium 138 (137-145) mmol/L Potassium 4.0 (3.4-5.1) mmol/L Chloride 106 (98-107) mmol/L Carbon Dioxide 26 (22-32) mmol/L BUN 17 (7-17) mg/dL Creatinine 0.68 (0.52-1.04) mg/dL Estimated GFR > 60 (>60) mL/min BUN/Creatinine Ratio 25.0 H (6-22) Glucose 103 H (70-99) mg/dL Calcium 9.2 (8.4-10.2) mg/dL Total Bilirubin 0.4 (0.2-1.3) mg/dL AST 32 (14-36) IU/L ALT 43 H (<35) IU/L Alkaline Phosphatase 108 (38-126) U/L Total Creatine Kinase 26 L (30-135) U/L Troponin I < 0.012 (0.01-0.034) ng/mL Total Protein 7.7 (6.3-8.2) g/dL Albumin 4.3 (3.5-5.0) g/dL Globulin 3.4 (1.7-4.1) g/dL Albumin/Globulin Ratio 1.3 (1.0-2.8) Lipase 73 (23-300) U/L SARS-CoV-2 (PCR) Negative (Negative) Influenza A (RT-PCR) Flu a negative (NEGATIVE) Influenza B (RT-PCR) Flu b negative (NEGATIVE) RSV (PCR) Negative (Negative) ECG Data Attestation: I personally reviewed and interpreted this ECG as follows: Interpretation: 0509, normal sinus rhythm with rate 63, no obvious ST segment elevation or depression changes. SC 150, QRS 82, QTC 425. MDM Narrative Medical decision making narrative: 49-year-old female currently on Augmentin and Doxycycline day 4 after recent azithromycin course of antibiotics for possible pneumonia on chest x-ray 03/18/2025. Still coughing despite Tessalon Perles. With some right-sided chest discomfort worse with coughing. No oxygen requirement. No wheeze or crackles on exam. No respiratory distress. Speaks in full sentences. Prior chest x-ray from 03/18/2025 reads possible infiltrate left base versus atelectasis, see radiology report. Chest x-ray today. Impression: ?No acute cardiopulmonary abnormality is identified.? See teleradiology report. Lab data: White blood cell count 9700, hemoglobin 14, platelets adequate. BMP unremarkable. Liver functions normal. Lipase normal. Troponin negative/unmeasurable. COVID flu RSV negative. Albuterol nebulized given, less coughing, patient feels little bit better. Add IV Solu-Medrol. Consider bronchospasm control measures for control of cough. Prednisone pulse to be sent to her pharmacy. Can continue antibiotic regimen. Follow up with PCP advised later this week. Return precautions discussed. Discharge Plan Departure Patient Disposition: Home Clinical Impression: Cough Instructions: DI for Cough -- Adult Activity Restrictions/Additional Instructions: Ongoing cough for the last couple of weeks, persisting on current day for antibiotic combination Augmentin and doxycycline, after oral course of azithromycin antibiotic, for possible pneumonia on chest x-ray read 03/18/2025. The reading describes possible pneumonia but also atelectasis localized collapse. COVID influenza RSV swab today negative. Breathing treatment albuterol given. Continue taking your benzonatate anti cough medicine, dose given here in the emergency department as well. You may have post viral cough, which can be fairly tenacious. Perhaps there is a component of bronchospasm that is making you cough. Steroids and bronchodilator inhalers can help with this type of cough. Albuterol inhaler with spacer dispensed, 2 puffs 4 times daily for this next week and then as needed. IV Solu-Medrol steroid given, with prescription to continue prednisone oral steroid for 5 day pulse. Recheck symptoms with your regular doctor later this week. Return to this/nearest emergency department for any change worsening symptoms or any concerns prior. Prescriptions: New prednisone 20 mg tablet 40 mg PO DAILY 5 Days Qty: 10 0RF No Action azithromycin 250 mg tablet See Rx Instructions PO .COMPLEX Qty: 6 0RF Rx Instructions: For 250 mg dose pack: take 500 mg today (day 1), then 250 mg for 4 days (days 2-5) PO benzonatate 200 mg capsule 200 mg PO BID-TID PRN (Reason: cough) Qty: 30 0RF prednisone 20 mg tablet 40 mg PO DAILY Qty: 6 0RF epinephrine 0.3 mg/0.3 mL auto-injector 0.3 ml IM Q5-10M PRN (Reason: Anaphylaxis) Qty: 2 0RF estradiol 0.05 mg/24 hr patch semiweekly 1 patch transdermal 2XW Qty: 24 3RF doxycycline hyclate 100 mg capsule 100 mg PO BID 10 Days Qty: 20 0RF amoxicillin-pot clavulanate 875-125 mg tablet 1 tab PO Q12H 7 Days Qty: 14 0RF progesterone micronized 100 mg capsule 100 mg PO QAM Qty: 90 3RF acetaminophen [Tylenol Extra Strength] 500 mg tablet 500 mg PO Q6H PRN gabapentin 300 mg capsule 300 mg PO .COMPLEX Qty: 90 2RF Rx Instructions: 1-2 PO Tid to begin at HS and titrate to pain relief Referrals: Henry Fish ARNP [Primary Care Provider, Medical] Stand Alone Forms: Patient Portal/API
--- NOTE | 2025-03-23 05:09 | EKG_ITS ---
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
--- NOTE | 2025-03-23 05:15 | DI.RAD.S_ITS ---
PROCEDURE: XR CHEST 1V INDICATIONS: chest pain TECHNIQUE: One view of the chest was acquired. COMPARISON: [facility], CR, XR CHEST 2V, 03/18/2025, 15:42. FINDINGS: Surgical changes and devices: None. Lungs and pleura: Lungs are clear. No pleural effusions or pneumothorax. Mediastinum: Mediastinal contours appear normal. Heart size is normal. Bones and chest wall: No suspicious bony lesions. Overlying soft tissues appear unremarkable. IMPRESSION: No acute cardiopulmonary pathology. No discrepancies. Dictated by: Ino Moran M.D. on 03/23/2025 at 8:11 Approved by: Ino Moran M.D. on 03/23/2025 at 8:11
[2025-03-23] MEDS: ALBUTEROL 2.5 MG/3 ML NEB (ADULT) INH (05:19)
[2025-03-23 05:20] LABS: Add Manual Diff / Slide Review NO; Hematocrit 43.1 % (36-46); Hemoglobin 14.4 g/dL (12.0-16.0); Lymphocytes Absolute Auto 2800 /uL (1100-4500); Mean Corpuscular HGB Conc 33.5 % (30-36); Mean Corpuscular Hemoglobin 29.2 PG (26-34); Mean Corpuscular Volume 87.2 fL (80-100); Platelet Count 241 X10^3/uL (150-400)
[2025-03-23 05:25] LABS: Alanine Aminotransferase 43 IU/L (<35); Albumin 4.3 g/dL (3.5-5.0); Albumin Globulin Ratio 1.3 (1.0-2.8); Alkaline Phosphatase 108 U/L (38-126); Blood Urea Nitrogen 17 mg/dL (7-17); Calcium 9.2 mg/dL (8.4-10.2); Carbon Dioxide 26 mmol/L (22-32); Chloride 106 mmol/L (98-107); Creatine Kinase 26 U/L (30-135); Estimated Glomerular Filt Rate > 60 mL/min (>60); Globulin 3.4 g/dL (1.7-4.1); Glucose 103 mg/dL (70-99); HEMOLYSIS < 15 (0-50); Lipase 73 U/L (23-300); Potassium 4.0 mmol/L (3.4-5.1); Sodium 138 mmol/L (137-145); Total Protein 7.7 g/dL (6.3-8.2)
[2025-03-23 05:37] LABS: Troponin I < 0.012 ng/mL (0.01-0.034)
[2025-03-23] MEDS: BENZONATATE 100 MG CAPSULE PO (05:42)
[2025-03-23 06:10] LABS: Influenza A - CEPHEID Flu A NEGATIVE (NEGATIVE); Influenza B - CEPHEID Flu B NEGATIVE (NEGATIVE)
[2025-03-23 06:19] LABS: COVID-19 CEPHEID 4-PLEX PCR Negative (Negative)
[2025-03-23] MEDS: ALBUTEROL HFA PREPACK 1 BOX MISC (06:25)
== END 2025-03-23 06:52 | disposition home or self-care (01) ==
PROVIDERS: Emergency Provider Emergency Medicine; PCP Registered Nurse Diabetes Educator
DX: R05.9 Cough, unspecified (principal); R07.9 Chest pain, unspecified
CPT/HCPCS: 36415; 71045; 80053; 82550; 83690; 84484; 85025; 87637; 93005; 93010; 94640; 96374; 99284; J2919; J7613

== ENCOUNTER → 2025-04-01 10:54 | Outpatient (CLI) | payer OTHER, SELFPAY | PROVIDERS: PCP Registered Nurse Diabetes Educator; Visit Provider Physician Assistant | DX: R35.0 Frequency of micturition (principal); R39.15 Urgency of urination | CPT/HCPCS: 87086 ==

== ENCOUNTER → 2025-08-11 15:33 | Outpatient (CLI) | payer OTHER, SELFPAY ==
--- NOTE | 2025-08-11 15:34 | DI.MG.S_ITS ---
MM screening mammo BI: 08/11/2025. BI-RADS: 1 CLINICAL: 49-year old female for bilateral screening mammogram. Tyrer-Cuzick lifetime risk of 12.1%. No personal or first-degree family history of breast cancer. PRIOR EXAMS 04/21/2024, 03/30/2023. MAMMOGRAPHY TECHNIQUE: 2D and 3D (tomosynthesis) digital mammographic views obtained, with additional images as needed for full coverage. Current study was also evaluated with a Computer Aided Detection (CAD) system. DENSITY C. The breasts are heterogeneously dense, which may obscure small masses. MAMMOGRAPHY FINDINGS Bilateral: No suspicious mass, asymmetry, microcalcification, or other abnormality seen. IMPRESSION: * No evidence of malignancy. RECOMMENDATIONS Bilateral * Annual screening mammography. OVERALL ASSESSMENT CATEGORY BI-RADS-1: Negative. The [employer] recommends annual screening mammography beginning at age 40 for women with average risk of breast cancer. ELECTRONICALLY SIGNED: Dieudonne Vásquez M.D. on 08/12/2025 at 10:55:17 AM PT Interpreting Station ID: [id number]
== END ==
LOC: MAMMO 15:33
PROVIDERS: PCP Registered Nurse Diabetes Educator; Referring Provider Registered Nurse Diabetes Educator; Visit Provider Registered Nurse Diabetes Educator
DX: Z12.31 Encounter for screening mammogram for malignant neoplasm of breast (principal); R92.333 Mammographic heterogeneous density, bilateral breasts
CPT/HCPCS: 77063; 77067